=== PATIENT | male | born 1995 | race Hispanic/Latino ===

== ENCOUNTER 2021-01-12 09:03 | Emergency (ER) | payer SELFPAY ==
--- OUTSIDE RECORDS SUMMARY | 2021-01-12 09:07 | XMS REPORT | Continuity of Care Document ---
:1995 Author Organization [facility] t Address [address] [place] [address] Care Team Providers Name Role Phone UNKNOWN, REFFERING Primary Care Physician Unavailable TANIA SANTO Attending Clinician Unavailable TANIA SANTO Admitting Clinician Unavailable Problems This patient has no known problems. Allergies, Adverse Reactions, Alerts This patient has no known allergies or adverse reactions. Medications This patient has no known medications. Procedures This patient has no known procedures. Results Test Description Test Time Test Comments Results Result Comments Source Comprehensive Metabolic Panel 2016-10-15 07:58:00 Test Item Value Reference Range Interpretation Comme nts Sodium (test code = NA) 140 mmol/L 135-145 N Potassium (test code = K) 4.5 mmol/L 3.5-5.1 N Chloride (test code = CL) 102 mmol/L 98-105 N Carbon Dioxide (test code = 29 mmol/L 22-29 N CO2) Glucose (test code = GLU) 86 mg/dL 70-115 N Blood Urea Nitrogen (test 21 mg/dL 6-20 H code = BUN) Creatinine (test code = 1.2 mg/dL 0.7-1.2 N CREAT) Calcium (test code = CA) 9.8 mg/dL 8.3-10.5 N Prot Total (test code = TP) 6.9 g/dL 6.4-8.3 N Albumin (test code = ALB) 4.5 g/dL 3.5-5.2 N A/G Ratio (test code = 1.9 Ratio AGRATIO) Globulin (test code = GLOB) 2.4 2.9-3.1 L Bili Total (test code = 0.9 mg/dL 0.1-0.9 N TBIL) Alk Phos (test code = 64 U/L 40-129 N APHOS) AST (test code = AST) 18 U/L 1-40 N ALT (test code = ALT) 17 U/L 1-41 N BUN/Creatinine Ratio (test 17.5 code = BCRATIO) Anion Gap (test code = 9 mmol/L 7-16 N AGAP) Estimated GFR (test code = >60 mL/min/1.73m2 eGFR (estimated Glomerular GFR) Filtration Rate ) is an estimated value ,calculated from the patien t's serum creatinine usin g the MDRD equation.It is NOT the patient's actua l GFR. The eGFR provides a more clinicallyusefu l measure of kidney disease than serum creatinine lisa e.This calculation dipak es sex and race into accou nt, if the informationis p rovided. If the race is not provided, and the patient isAfrican-Ameri can, multiply by 1.212. If se x is not provided, and t hepatient is female, multipl y by 0.742. Results for pat ients <18 years ofage hav e not been validated by e MDRD study and should be i nterpretedwith caution.eGFR Re sult Interpretation: eGFR > or = 60 is in the Rahel l RangeeGFR < 60 may mean kid wesley diseaseeGFR < 1 5 may mean kidney failure* Ranges recommended by the National Kidney Foundation,http ://nkdep.nih.g ov Renal [id number] 07:55:00 Test Item Value Reference Range Interpretation Comments Sodium (test code = 140 mmol/L 135-145 N NA) Potassium (test 4.6 mmol/L 3.5-5.1 N code = K) Chloride (test code 101 mmol/L 98-105 N = CL) Carbon Dioxide 29 mmol/L 22-29 N (test code = CO2) Glucose (test code 87 mg/dL 70-115 N = GLU) Blood Urea Nitrogen 20 mg/dL 6-20 N (test code = BUN) Creatinine (test 1.2 mg/dL 0.7-1.2 N code = CREAT) Calcium (test code 9.9 mg/dL 8.3-10.5 N = CA) Albumin (test code 4.4 g/dL 3.5-5.2 N = ALB) Phosphorus (test 4.2 mg/dL 2.70-4.50 N code = PO4) BUN/Creatinine 16.7 Ratio (test code = BCRATIO) Anion Gap (test 10 mmol/L 7-16 N code = AGAP) Estimated GFR (test >60 eGFR (es timated code = GFR) mL/min/1.73m2 Glomerular Wes tration Rate) is an est imated value,calculate d from the patient's s chey creatinine usin g the MDRD equation.I t is NOT the patient 's actual GFR. The eGFR provides a more clinicallyusefu l measure of kidn ey disease than se rum creatinine alone.This calculation dipak es sex and race into account, if the informationis provided. If th e race is not provided , and the patient isAfrican-Ameri can, multiply by 1.2 12. If sex is not prov ided, and thepatient is female, multipl y by 0.742. Results for patients <18 ye ars ofage have not been validated by th e MDRD study and shoul d be interpretedwith caution.eGFR Re sult Interpretation: eGFR > or = 60 is in t he Normal RangeeGF R < 60 may mean kidney diseaseeGFR < 1 5 may mean kidney failureRange s recommended by the National Kidney Foundation,http ://nkd ep.nih.gov RPR, [id number] 13:48:00 Test Item Value Reference Range Interpretation Comments RPR (test code = RPR) Non-Reactive Non-Reactive N Thyroid Stimulating Hormone (TSH)2016-10-13 08:11:00 Test Item Value Reference Range Interpretation Comments TSH (test code = TSH) 2.73 mIU/mL 0.270-4.200 N Lipid [id number] 08:04:00 Test Item Value Reference Range Interpretation Comments Cholesterol (test 182 mg/dL 0-200 N code = CHOL) Triglycerides (test 114 mg/dL 9-200 N code = TRIG) HDL (test code = 69 mg/dL 40-60 H HDL) Chol/HDL (test code 2.6 Ratio 0.0-5.0 N = CHOLPHDL) LDL, Calculated 90 0-130 N (NOTE)RISK O F HEART (test code = LDLC) DISEASEPu blished by Camero[place] Heart AssociationAnal yte Optim al Boderline Increased RiskC HOL <200 200-239 >240TRI G <150 150-199 >200HDL Male: >60 <40HDL Female: >60 <50 LDL < 100 130-15 9 >160 LDL NEAR OPTIMAL IS 100- 129 VLDL (test code = 23 mg/dL 5-40 N VLDL) LDL/HDL (test code = 1 LDLPHDL)
[2021-01-12] MEDS ORDERED: LORazepam 2 MG/ML VIAL ONE (09:11)
[2021-01-12] MEDS ORDERED: NA CHLORIDE 0.9% 1,000 ML ONE ×2 (09:19→10:53)
--- NOTE | 2021-01-12 09:31 | RAD REPORT ---
EXAM DESCRIPTION: CT - Head Brain Wo Cont - 01/12/2021 9:21 am CLINICAL HISTORY: Headache;Seizure COMPARISON: <Comparisons> TECHNIQUE: All CT scans are performed using dose optimization technique as appropriate and may inclu de automated exposure control or mA/KV adjustment according to patient size. FINDINGS: No intracranial hemorrhage, hydrocephalus or extra-axial fluid collection.No areas of brai n edema or evidence of midline shift. Air-fluid level left maxillary sinus. The calvarium is intact. IMPRESSION: No acute intracranial abnormality.
[2021-01-12] MEDS ORDERED: CEFTRIAXONE 1000 MG/VIAL ONE (09:53)
[2021-01-12] MEDS ORDERED: LEVETIRACETAM 500 MG/5 ML VIAL IV ONE (09:53)
[2021-01-12] MEDS ORDERED: WATER FOR INJ,STERILE 10 ML ONE (09:53)
[2021-01-12 09:54] LABS: Protime INR 0.97
[2021-01-12] MEDS ORDERED: NA CHLORIDE 0.9% 100 ML ONE (09:55)
[2021-01-12 09:57] LABS: Absolute Lymphocytes (CBC) 0.8 K/uL (0.7-4.9); Basophils % 0.5 % (0-1.3); Lymphocytes % 15.1 % (15.3-44.8); MPV 8.3 fL (7.6-11.3); RBC Red Blood Cell Count 4.85 M/uL (4.33-5.43)
[2021-01-12 10:26] LABS: ALT/SGPT 36 U/L (12-78); AST/SGOT 32 U/L (15-37); Albumin 3.8 g/dL (3.4-5.0); Alkaline Phosphatase 77 U/L (45-117); BUN Blood Urea Nitrogen 17 mg/dL (7-18); Bicarbonate 25 mmol/L (21-32); Bilirubin Direct 0.2 mg/dL (0-0.2); Bilirubin Total 0.7 mg/dL (0.2-1.0); Glucose Level 94 mg/dL (74-106); Protein, Total 7.2 g/dL (6.4-8.2); Sodium Level 141 mmol/L (136-145)
[2021-01-12 11:06] LABS: Urine Blood Negative (Negative); Urine Glucose Negative (Negative); Urine Protein Negative (Negative); Urine Specific Gravity 1.025 (1.005-1.030)
--- NOTE | 2021-01-12 11:28 | EDPHYS ---
Physician Documentation [facility] Name: Moses Cochran Age: 25 yrs Sex: Male : 1995 Arrival Date: 01/12/2021 Time: 09:04 Bed 6 Private MD: ED Physician Chris Gregg HPI: 01/12 09:28 This 25 yrs old Male presents to ER via EMS with complaints of seizure and ams.tal 09:28 The patient's problem is reported as an apparent seizure, weakness, that is tal generalized. Onset: The symptoms/episode began/occurred this morning. Duration: This was a single incident. Context: the episode(s) was witnessed, by family, mother. The symptoms are alleviated by nothing. The symptoms are aggravated by nothing. The patient presents with confusion, trouble concentrating. Possible causes: drug use, unk, seizure. Associated signs and symptoms: Pertinent positives: confusion. Current symptoms: In the emergency department the patient's symptoms have improved, moderately. Historical: - Allergies: 09:07 NKDA; jt3 - Home Meds: 09:07 None [Active]; jt3 - PMHx: 09:07 Seizures; jt3 - Immunization history:: Adult Immunizations up to date. - Social history:: Patient uses alcohol, Smoking status: unknown. - Family history:: not pertinent. ROS: 09:28 Constitutional: Negative for fever, chills, and weight loss, Eyes: Negative for injury, tal pain, redness, and discharge, ENT: Negative for injury, pain, and discharge, Neck: Negative for injury, pain, and swelling, Cardiovascular: Negative for chest pain, palpitations, and edema, Respiratory: Negative for shortness of breath, cough, wheezing, and pleuritic chest pain, Abdomen/GI: Negative for abdominal pain, nausea, vomiting, diarrhea, and constipation, Back: Negative for injury and pain, : Negative for injury, bleeding, discharge, and swelling, MS/Extremity: Negative for injury and deformity, Skin: Negative for injury, rash, and discoloration, Psych: Negative for depression, anxiety, suicide ideation, homicidal ideation, and hallucinations, Allergy/Immunology: Negative for hives, rash, and allergies, Endocrine: Negative for neck swelling, polydipsia, polyuria, polyphagia, and marked weight changes, Hematologic/Lymphatic: Negative for swollen nodes, abnormal bleeding, and unusual bruising. :28 Neuro: Positive for altered mental status, weakness. Exam: : Radiologist reports: negative tal : Constitutional: This is a well developed, well nourished patient who is awake, alert, and in no acute distress. Head/Face: Normocephalic, atraumatic. Eyes: Pupils equal round and reactive to light, extra-ocular motions intact. Lids and lashes normal. Conjunctiva and sclera are non-icteric and not injected. Cornea within normal limits. Periorbital areas with no swelling, redness, or edema. ENT: Nares patent. No nasal discharge, no septal abnormalities noted. Tympanic membranes are normal and external auditory canals are clear. Oropharynx with no redness, swelling, or masses, exudates, or evidence of obstruction, uvula midline. Mucous membranes moist. Neck: Trachea midline, no thyromegaly or masses palpated, and no cervical lymphadenopathy. Supple, full range of motion without nuchal rigidity, or vertebral point tenderness. No Meningismus. Chest/axilla: Normal chest wall appearance and motion. Nontender with no deformity. No lesions are appreciated. Cardiovascular: Regular rate and rhythm with a normal S1 and S2. No gallops, murmurs, or rubs. Normal PMI, no JVD. No pulse deficits. Respiratory: Lungs have equal breath sounds bilaterally, clear to auscultation and percussion. No rales, rhonchi or wheezes noted. No increased work of breathing, no retractions or nasal flaring. Abdomen/GI: Soft, non-tender, with normal bowel sounds. No distension or tympany. No guarding or rebound. No evidence of tenderness throughout. Back: No spinal tenderness. No costovertebral tenderness. Full range of motion. Skin: Warm, dry with normal turgor. Normal color with no rashes, no lesions, and no evidence of cellulitis. MS/ Extremity: Pulses equal, no cyanosis. Neurovascular intact. Full, normal range of motion. Neuro: Awake and alert, GCS 15, oriented to person, place, time, and situation. Cranial nerves II-XII grossly intact. Motor strength 5/5 in all extremities. Sensory grossly intact. Cerebellar exam normal. Normal gait. Psych: Awake, alert, with orientation to person, place and time. Behavior, mood, and affect are within normal limits. 09:56 ECG was reviewed by the Attending Physician. tal Vital Signs: 09:04 BP 128 / 80; Pulse 103; Resp 17; Temp 98.1(TE); Pulse Ox 97% on R/A; Weight 63.5 kg; jt3 Height 5 ft. 5 in. (165.10 cm); 10:11 BP 114 / 57; Pulse 108; Resp 17; Pulse Ox 97% on R/A; jt3 11:06 BP 99 / 69; Pulse 96; Resp 17; Pulse Ox 99% on R/A; jt3 11:46 BP 109 / 54; Pulse 61; Resp 17; Pulse Ox 98% on R/A; jt3 12:15 BP 132 / 63; Pulse 60; Resp 17; Pulse Ox 97% on R/A; jt3 09:04 Body Mass Index 23.30 (63.50 kg, 165.10 cm) jt3 MDM: 09:04 Patient medically screened. tal 09:35 Differential diagnosis: metabolic disorder, drug effects. Differential Diagnosis: tal electrolyte abnormality, alcohol intoxication, hypoglycemia, intracranial bleed, overdose, seizure, TIA, volume depletion. Data reviewed: vital signs, nurses notes, EMS record, lab test result(s), EKG, radiologic studies, CT scan. Data interpreted: desk monitor: rate is 103 beats/min, rhythm is regular, Pulse oximetry: on room air is 97 %. Test interpretation: by ED physician or midlevel provider: ECG. Counseling: I had a detailed discussion with the patient and/or guardian regarding: the presence of at least one elevated blood pressure reading (>120/80) during this emergency department visit, lab results, radiology results. 01/12 09:05 Order name: Acetaminophen; Complete Time: 10:41 [facility] 01/12 09:05 Order name: Basic Metabolic Panel; Complete Time: 10:41 [facility] 01/12 09:05 Order name: CBC with Diff; Complete Time: 10:41 [facility] 01/12 09:05 Order name: ETOH Level; Complete Time: 10:41 [facility] 01/12 09:05 Order name: Hepatic Function; Complete Time: 10:41 [facility] 01/12 09:05 Order name: PT-INR; Complete Time: 10:41 [facility] 01/12 09:05 Order name: Ptt, Activated; Complete Time: 10:41 [facility] 01/12 09:05 Order name: Salicylate; Complete Time: 10:41 [facility] 01/12 09:05 Order name: Urine Drug Screen; Complete Time: 11:33 [facility] 01/12 09:05 Order name: CT Head Brain wo Cont; Complete Time: 09:38 [facility] 01/12 11:05 Order name: Urine Dipstick-Ancillary; Complete Time: 11:20 EDMS 01/12 09:05 Order name: EKG; Complete Time: 09:05 [facility] 01/12 09:05 Order name: EKG - Nurse/Tech; Complete Time: 09:51 [facility] 01/12 09:05 Order name: IV Saline Lock; Complete Time: 09:16 [facility] 01/12 09:05 Order name: Labs collected and sent; Complete Time: 09:51 [facility] 01/12 09:05 Order name: Suicide Screening ([place]); Complete Time: 09:28 [facility] 01/12 09:05 Order name: Urine Dipstick-Ancillary (obtain specimen); Complete Time: 11:23 [facility] 01/12 09:05 Order name: Seizure Precautions; Complete Time: 09:15 [facility] EC:56 Rate is 87 beats/min. Rhythm is regular. QRS Kim is Normal. CA interval is normal. QRS tal interval is normal. QT interval is normal. No Q waves. T waves are Normal. No ST changes noted. Clinical impression: Normal ECG and No evidence of ischemia. Interpreted by me. Reviewed by me. Administered Medications: 09:16 Drug: Ativan (LORazepam) 1 mg Route: IVP; Site: left antecubital; jt3 11:17 Follow up: Response: No adverse reaction jt3 09:51 Drug: NS 0.9% 1000 ml Route: IV; Rate: 1 bolus; Site: right antecubital; jt3 10:06 Drug: Keppra (levETIRAcetam) 1000 mg Route: IV; Rate: per protocol; Site: right jt3 antecubital; 10:06 Drug: Rocephin (cefTRIAXone) 1 grams Route: IV; Rate: per protocol; Site: right jt3 antecubital; 11:17 Follow up: Response: No adverse reaction jt3 11:06 Drug: NS 0.9% 1000 ml Route: IV; Rate: 1 bolus; Site: right forearm; jt3 11:16 Follow up: Response: No adverse reaction; IV Intake: 1000ml jt3 11:58 Follow up: Response: No adverse reaction; IV Status: Completed infusion; IV Intake: jt3 900ml Disposition Summary: 01/12/21 11:27 Discharge Ordered Location: Home tal Problem: new tal Symptoms: have improved tal Condition: Stable tal Diagnosis - Epileptic seizures related to external causes, not intractable tal - Alcohol abuse, uncomplicated tal - Acute maxillary sinusitis tal Followup: tal - With: Private Physician - When: 2 - 3 days - Reason: Recheck today's complaints, Continuance of care, Re-evaluation by your physician Followup: tal - With: - When: 2 - 3 days - Reason: Recheck today's complaints, Continuance of care, Re-evaluation by your physician Discharge Instructions: - Discharge Summary Sheet tal - Alcohol Use Disorder tal - Non-Epileptic Seizures, Adult tal - Seizure, Adult tal - Substance Use Disorder tal - Sinusitis, Adult tal - Seizure, Adult, [id number] tal - Sinusitis, Adult, [id number] tal - Alcohol Abuse and Nutrition tal Forms: - Medication Reconciliation Form tal - Thank You Letter tal - Antibiotic Education tal - Prescription Opioid Use tal Prescriptions: - Keppra 500 mg Oral Tablet - take 1 tablet by ORAL route every 12 hours; 20 tablet; Refills: 0, Product [facility] Selection Permitted - Bactrim DS 800-160 mg Oral Tablet - take 1 tablet by ORAL route every 12 hours for 10 days; 20 tablet; Refills: 0, tal Product Selection Permitted Signatures: Dispatcher [employer] Chris Castillo MD MD cha Tejchma, Jordan, RN RN jt3
--- NOTE | 2021-01-12 11:28 | ER ---
Nurse's Notes [facility] Name: Moses Cochran Age: 25 yrs Sex: Male : 1995 Arrival Date: 01/12/2021 Time: 09:04 Bed 6 Private MD: Diagnosis: Epileptic seizures related to external causes, not intractable;Alcohol abuse, uncomplicated;Acute maxillary sinusitis Presentation: 01/12 09:04 Chief complaint: EMS states: Patient's mom found the patient having a seizure on jt3 ground. Pt. fell from sofa. Pt. is alert and oriented x4 on arrival with headache. Does not remember seizure. Past hx of using K2 spice 4 years ago. Denies any other medical hx or on any meds. Coronavirus screen: Vaccine status: Patient reports receiving the 2nd dose of the covid vaccine. Ebola Screen: Patient negative for fever greater than or equal to 101.5 degrees Fahrenheit, and additional compatible Ebola Virus Disease symptoms Patient denies exposure to infectious person. Patient denies travel to an Ebola-affected area in the 21 days before illness onset. Initial Sepsis Screen: Does the patient meet any 2 criteria? No. Patient's initial sepsis screen is negative. Does the patient have a suspected source of infection? No. Patient's initial sepsis screen is negative. Risk Assessment: Do you want to hurt yourself or someone else? Patient reports no desire to harm self or others. Onset of symptoms was January 12, 2021. 09:04 Method Of Arrival: EMS: [facility] jt3 09:04 Acuity: KOBI 3 jt3 Triage Assessment: 09:07 General: Appears in no apparent distress. Behavior is calm, cooperative. jt3 Historical: - Allergies: 09:07 NKDA; jt3 - Home Meds: 09:07 None [Active]; jt3 - PMHx: 09:07 Seizures; jt3 - Immunization history:: Adult Immunizations up to date. - Social history:: Patient uses alcohol, Smoking status: unknown. - Family history:: not pertinent. Screenin:08 Abuse screen: Denies threats or abuse. Denies injuries from another. Nutritional jt3 screening: No deficits noted. Tuberculosis screening: No symptoms or risk factors identified. Fall Risk Fall in past 12 months (25 points). Assessment: 09:08 Pain: Complains of pain in face Pain does not radiate. Pain currently is 5 out of 10 on jt3 a pain scale. Quality of pain is described as throbbing. Neuro: Level of Consciousness is awake, alert, Oriented to person, place, time, situation, Speech is normal, Pupils are PERRLA. Cardiovascular: No deficits noted. Cardiovascular: Denies Rhythm is sinus tachycardia. Respiratory: No deficits noted. 10:09 Reassessment: Patient denies wanting to harm himself. Prior attempt 8 years ago. Pt. jt3 screens moderate risk on CSSRS due to prior attempt within a lifetime. 11:07 Reassessment: Pt. states he is feeling better, but still has a slight headache. Alert jt3 and oriented x4. Pt. updated on plan of care. 11:45 Reassessment: Pt. is steady on his feet. Alert and oriented x4. Pt. walked jt3 independently to the bathroom. Vital Signs: 09:04 BP 128 / 80; Pulse 103; Resp 17; Temp 98.1(TE); Pulse Ox 97% on R/A; Weight 63.5 kg; jt3 Height 5 ft. 5 in. (165.10 cm); 10:11 BP 114 / 57; Pulse 108; Resp 17; Pulse Ox 97% on R/A; jt3 11:06 BP 99 / 69; Pulse 96; Resp 17; Pulse Ox 99% on R/A; jt3 11:46 BP 109 / 54; Pulse 61; Resp 17; Pulse Ox 98% on R/A; jt3 12:15 BP 132 / 63; Pulse 60; Resp 17; Pulse Ox 97% on R/A; jt3 09:04 Body Mass Index 23.30 (63.50 kg, 165.10 cm) jt3 ED Course: 09:04 Patient arrived in ED. iw 09:04 Tomy Rico RN is Primary Nurse. jt3 09:04 Chris Gregg MD is Attending Physician. tal 09:07 Triage completed. jt3 09:07 Arm band placed on right wrist. jt3 09:08 Bed in low position. Call light in reach. Side rails up X2. Seizure precautions jt3 initiated. 09:08 No provider procedures requiring assistance completed. Maintain EMS IV. Dressing jt3 intact. Good blood return noted. Site clean \T\ dry. Gauge \T\ site: 20G Right FA. . 09:21 CT Head Brain wo Cont In Process Unspecified. EDMS 11:27 Gaurav Russell MD is Referral Physician. [facility] 11:57 IV discontinued, intact, bleeding controlled, No redness/swelling at site. Pressure jt3 dressing applied. Administered Medications: 09:16 Drug: Ativan (LORazepam) 1 mg Route: IVP; Site: left antecubital; jt3 11:17 Follow up: Response: No adverse reaction jt3 09:51 Drug: NS 0.9% 1000 ml Route: IV; Rate: 1 bolus; Site: right antecubital; jt3 10:06 Drug: Keppra (levETIRAcetam) 1000 mg Route: IV; Rate: per protocol; Site: right jt3 antecubital; 10:06 Drug: Rocephin (cefTRIAXone) 1 grams Route: IV; Rate: per protocol; Site: right jt3 antecubital; 11:17 Follow up: Response: No adverse reaction jt3 11:06 Drug: NS 0.9% 1000 ml Route: IV; Rate: 1 bolus; Site: right forearm; jt3 11:16 Follow up: Response: No adverse reaction; IV Intake: 1000ml jt3 11:58 Follow up: Response: No adverse reaction; IV Status: Completed infusion; IV Intake: jt3 900ml Intake: 11:16 IV: 1000ml; Total: 1000ml. jt3 11:58 IV: 900ml; Total: 1900ml. jt3 Outcome: 11:27 Discharge ordered by . [facility] 11:58 Discharged to home ambulatory. jt3 11:58 Condition: good 11:58 Discharge instructions given to patient, Instructed on discharge instructions, follow up and referral plans. medication usage, Demonstrated understanding of instructions, medications, Prescriptions given X 2. 12:06 Patient left the ED. jt3 Signatures: Dispatcher [employer] EDMD Chris Gregg MD MD cha Williams, Irene, RN RN iw Tejchma, Jordan, RN RN jt3
[2021-01-12 11:29] LABS: Barbiturates NEGATIVE (NEGATIVE); Benzodiazepines NEGATIVE (NEGATIVE); Cocaine NEGATIVE (NEGATIVE); METHAMPHETAM NEGATIVE (NEGATIVE); Methadone NEGATIVE (NEGATIVE); Opiates NEGATIVE (NEGATIVE); Phencyclidine NEGATIVE (NEGATIVE); THC Cannibis NEGATIVE (NEGATIVE)
[2021-01-12 12:11] VITALS: TEMP 98.1
[2021-01-12 12:16] VITALS: BP 109/54; O2SAT 98
== END 2021-01-12 12:06 | disposition home or self-care (01) ==
LOC: ER 09:03
DX: G40.509 Epileptic seizures related to external causes, not intractable, without status epilepticus (principal); F10.10 Alcohol abuse, uncomplicated; J01.00 Acute maxillary sinusitis, unspecified
CPT/HCPCS: 36415; 70450; 80048; 80076; 80307; 80320; 80329; 81003; 85025; 85610; 85730; 93005; 99284; J1953; J7030

== ENCOUNTER 2021-05-29 18:20 | Emergency (ER) | payer SELFPAY ==
--- OUTSIDE RECORDS SUMMARY | 2021-05-29 18:22 | XMS REPORT | Continuity of Care Document ---
:1995 Author Organization [facility] t Address [address] [place] [address] Care Team Providers Name Role Phone UNKNOWN, [...] the National Kidney Foundation,http ://nkdep.nih.g ov Renal [id number] 07:55:00 Test Item Value Reference Range Interpretation [...] the National Kidney Foundation,http ://nkd ep.nih.gov RPR, [id number] 13:48:00 Test Item Value Reference Range Interpretation Comments RPR (test code = RPR) Non-Reactive Non-Reactive N Thyroid Stimulating Hormone (TSH)2016-10-13 08:11:00 Test Item Value Reference Range Interpretation Comments TSH (test code = TSH) 2.73 mIU/mL 0.270-4.200 N Lipid [id number] 08:04:00 Test Item Value Reference Range Interpretation Comments Cholesterol (test 182 mg/dL 0-200 N code = CHOL) Triglycerides (test 114 mg/dL 9-200 N code = TRIG) HDL (test code = 69 mg/dL 40-60 H HDL) Chol/HDL (test code 2.6 Ratio 0.0-5.0 N = CHOLPHDL) LDL, Calculated 90 0-130 N (NOTE)RISK O F HEART (test code = LDLC) DISEASEPu blished by [place] Heart AssociationAnal yte Optim al Boderline Increased RiskC HOL <200 200-239 >240TRI G <150 150-199 >200HDL Male: >60 <40HDL Female: >60 <50 LDL < 100 130-15 9 >160 LDL NEAR OPTIMAL IS 100- 129 VLDL (test code = 23 mg/dL 5-40 N VLDL) LDL/HDL (test code = 1 LDLPHDL)
[2021-05-29] MEDS ORDERED: MIDAZOLAM HCL 2 MG/2 ML INJ ONE (18:27)
[2021-05-29 18:52] LABS: Absolute Lymphocytes (CBC) 2.3 K/uL (0.7-4.9); Hematocrit 42.3 % (39.6-49.0); Lymphocytes % 32.7 % (15.3-44.8); MPV 8.7 fL (7.6-11.3)
[2021-05-29 18:57] LABS: Protime INR 1.05
[2021-05-29 19:15] LABS: ALT/SGPT 34 U/L (12-78); AST/SGOT 32 U/L (15-37); BUN Blood Urea Nitrogen 16 mg/dL (7-18); Bicarbonate 23 mmol/L (21-32); Bilirubin Direct 0.2 mg/dL (0-0.2); Glucose Level 116 mg/dL (74-106); Potassium 3.9 mmol/L (3.5-5.1); Sodium Level 140 mmol/L (136-145)
[2021-05-29 19:17] LABS: Alkaline Phosphatase 68 U/L (45-117); Bilirubin Total 0.6 mg/dL (0.2-1.0); Protein, Total 7.1 g/dL (6.4-8.2)
--- NOTE | 2021-05-29 19:23 | RAD REPORT ---
EXAM DESCRIPTION: CT - Head Brain Wo Cont - 05/29/2021 7:01 pm CLINICAL HISTORY: CONFUSED, altered mental status COMPARISON: Head Brain Wo Cont dated 01/12/2021 TECHNIQUE: Axial 5 mm thick images of the head were obtained without IV contrast. All CT scans are performed using dose optimization technique as appropriate and may include automated exposure control or mA/KV adjustment according to patient size. FINDINGS: No intracranial hemorrhage, mass, edema or shift of mid-line structures. No acute infarcti on changes seen. No abnormal extra-axial fluid collections. Ventricles are normal. Mastoid air cells and visualized portions of the paranasal sinuses are clear. No acute bony findings. No significant change from comparison. IMPRESSION: Negative non-contrast CT head examination.
[2021-05-29] MEDS ORDERED: NA CHLORIDE 0.9% 2,000 ML ONE (19:29)
[2021-05-29 19:48] LABS: Urine Blood Negative (Negative); Urine Glucose Negative (Negative); Urine Protein 1+ (Negative); Urine Specific Gravity 1.025 (1.005-1.030)
[2021-05-29] MEDS ORDERED: NA CHLORIDE 0.9% 1,000 ML ONE (19:59)
[2021-05-29] MEDS ORDERED: THIAMINE 200 MG/2 ML INJ ONE (19:59)
[2021-05-29] MEDS ORDERED: MULTIVITAMINS 10 ML VIAL (INJ) IV ONE (19:59)
[2021-05-29] MEDS ORDERED: FOLIC ACID 5 MG/ML VIAL ONE (20:00)
[2021-05-29 20:06] LABS: Barbiturates NEGATIVE (NEGATIVE); Benzodiazepines POSITIVE (NEGATIVE); Cocaine NEGATIVE (NEGATIVE); METHAMPHETAM POSITIVE (NEGATIVE); Methadone NEGATIVE (NEGATIVE); Opiates NEGATIVE (NEGATIVE); Phencyclidine NEGATIVE (NEGATIVE); THC Cannibis POSITIVE (NEGATIVE)
--- NOTE | 2021-05-29 21:50 | EDPHYS ---
Physician Documentation [facility] Name: Moses Cochran Age: 25 yrs Sex: Male : 1995 Arrival Date: 05/29/2021 Time: 18:22 Bed 6 Private MD: ED Physician Chris Gregg HPI: 05/29 18:26 This 25 yrs old Male presents to ER via Unassigned with complaints of AMS. rn 18:26 The patient presents with decreased responsiveness, agitation. Onset: The rn symptoms/episode began/occurred at an unknown time. Possible causes: drug use. Associated signs and symptoms: Pertinent positives: agitation, confusion. Current symptoms: In the emergency department the patient's symptoms have improved. It is unknown whether or not the patient has had similar symptoms in the past. EMS called out for AMS, were told smoked marijuana, unknown if another substance, pt found on ground, pants down, hand on penis with a knife in other hand saying there was a bug in his penis. Was agitated and excited delirium, given 2 mg ativan and 150mg ketamine and still fighting a bit. No seizure activity. . Historical: - Allergies: 18:32 NKDA; iw - PMHx: 18:32 Renal Disease; Seizures; iw - Immunization history:: Adult Immunizations unknown. - Social history:: Smoking status: unknown. - Unable to obtain history due to: altered mental status. ROS: 18:26 Unable to obtain ROS due to altered mental status, patient being uncooperative. rn Exam: 18:26 Constitutional: Well developed patient, altered, uncooperative, no seizure activity, rn sits up and speaks incomprehensibly, spitting, in soft restraints from EMS. Head/Face: Normocephalic, atraumatic. Eyes: Pupils dilated, no nystagmus ENT: dry MM Cardiovascular: tachcyardic, regular Respiratory: No increased work of breathing, no retractions or nasal flaring. Abdomen/GI: soft, non-tender Skin: Warm, dry MS/ Extremity: Pulses equal, no cyanosis. Neuro: Altered, moves all 4 extremities against restraints, no seizure activity, speaks but does not follow commands. Very agitated 19:44 ECG was reviewed by the Attending Physician. tal Vital Signs: 18:30 BP 104 / 54; Pulse 132; Resp 18; Temp 96.8; Pulse Ox 97% on R/A; ph 19:30 BP 108 / 55; Pulse 108; Resp 20 S; Pulse Ox 97% on R/A; as6 20:30 BP 109 / 53; Pulse 105; Resp 17 S; Pulse Ox 97% on R/A; as6 21:28 BP 112 / 53; Pulse 96; Resp 16; Pulse Ox 100% on R/A; st1 MDM: 18:24 Patient medically screened. rn 19:44 Differential Diagnosis: electrolyte abnormality, alcohol intoxication, hypoglycemia, tal intracranial bleed, pneumonia, seizure, UTI, volume depletion. Data reviewed: vital signs, nurses notes, lab test result(s), CBC, drug level(s), electrolytes, hepatic panel, EKG, radiologic studies. Data interpreted: stock holder: rate is 132 beats/min, rhythm is regular, Pulse oximetry: on room air is 97 %. Test interpretation: by ED physician or midlevel provider: ECG, plain radiologic studies. Counseling: I had a detailed discussion with the patient and/or guardian regarding: the historical points, exam findings, and any diagnostic results supporting the discharge/admit diagnosis, lab results, radiology results. 05/29 18:26 Order name: Acetaminophen; Complete Time: 19: rn 05/29 18:26 Order name: Basic Metabolic Panel; Complete Time: 19: rn 05/29 18:26 Order name: CBC with Diff; Complete Time: 19: rn 05/29 18:26 Order name: ETOH Level; Complete Time: 19:22 rn 05/29 18:26 Order name: Hepatic Function; Complete Time: 19: rn 05/29 18:26 Order name: PT-INR; Complete Time: 19:22 rn 05/29 18:26 Order name: Ptt, Activated; Complete Time: 19:22 rn 05/29 18:26 Order name: Salicylate rn 05/29 18:26 Order name: Urine Drug Screen; Complete Time: 20:12 rn 05/29 18:26 Order name: CT Head Brain wo Cont; Complete Time: 19: rn 05/29 19:49 Order name: Urine Dipstick-Ancillary; Complete Time: 20:12 EDCA 05/29 18:26 Order name: EKG; Complete Time: 18:27 rn 05/29 18:26 Order name: EKG - Nurse/Tech; Complete Time: 19:48 rn 05/29 18:26 Order name: IV Saline Lock; Complete Time: 19:16 rn 05/29 18:26 Order name: Labs collected and sent; Complete Time: 19:16 rn 05/29 18:26 Order name: Urine Dipstick-Ancillary (obtain specimen); Complete Time: 19:48 rn 05/29 18:26 Order name: Glucose Level; Complete Time: 19:26 rn EC:44 Rate is 109 beats/min. Rhythm is regular. QRS [place] is Normal. [place] interval is normal. tal QRS interval is normal. QT interval is normal. No Q waves. T waves are Normal. No ST changes noted. Clinical impression: NSR w/ Non-specific ST/T Changes and No evidence of ischemia. Interpreted by me. Reviewed by me. Administered Medications: 18:27 Drug: Versed (midazolam) 2 mg Route: IVP; Site: right forearm; iw 19:45 Drug: NS 0.9% 1000 ml Route: IV; Rate: 1000 ml; Site: right forearm; st1 19:45 Drug: NS 0.9% 1000 ml Route: IV; Rate: 1000 ml; Site: right forearm; st1 20:08 Drug: Thiamine 100 mg Route: IV; Rate: bolus; Site: right forearm; as6 20:08 Drug: Banana Bag - (NS 0.9% 1000 ml, foLIC Acid 1 mg, Thiamine 100 mg, Multivitamin 1 as6 amp) Route: IV; Rate: 150 ml/hr; Site: right forearm; Disposition Summary: 05/29/21 21:50 Discharge Ordered Location: Home tal Problem: new tal Symptoms: have improved tal Condition: Stable tal Diagnosis - Abuse of other non-psychoactive substances tal - Altered mental status, unspecified tal - Adverse effect of amphetamines tal Followup: tal - With: Private Physician - When: 2 - 3 days - Reason: Recheck today's complaints, Continuance of care, Re-evaluation by your physician Followup: tal - With: - When: 2 - 3 days - Reason: Recheck today's complaints, Re-evaluation by your physician Discharge Instructions: - Discharge Summary Sheet tal - Finding Treatment for Addiction tal - Confusion tal - Substance Use Disorder tal - Supporting Someone With an Addiction tal - Amphetamines Use Disorder tal - Substance Use Disorder and Mental Illness tal - Illegal Drug Use Information, Adult tal - Supporting Someone With Substance Use Disorder tal Forms: - Medication Reconciliation Form tal - Thank You Letter tal - Antibiotic Education tal - Prescription Opioid Use tal Signatures: Dispatcher [employer] Chris Castillo MD MD cha Williams, Irene RN Jaziel Gibbs MD MD rn Attema, Lee, BIOMEDICAL ENGINEERING TECHNICIAN-C BIOMEDICAL ENGINEERING TECHNICIAN-Cla1 Aydee Klein RN RN Kel Fenton RN RN as6 Diann Drake RN RN st1
--- NOTE | 2021-05-29 21:50 | ER ---
Nurse's Notes [facility] Name: Moses Cochran Age: 25 yrs Sex: Male : 1995 Arrival Date: 05/29/2021 Time: 18:22 Bed 6 Private MD: Diagnosis: Abuse of other non-psychoactive substances;Altered mental status, unspecified;Adverse effect of amphetamines Presentation: 05/29 18:20 Chief complaint: EMS states: were called for a pt trying to remove a bug from his penis iw with a pocket knife, pt became combative, exhibiting signs of excited delirium , AMS, tachycardic, admitted to smoking marijuana only, EMS gave 150 Ketamine IVP and 2 mg ativan IVP ON SITE CONSTRUCTION SUPERINTENDENT, pt arrives to ER, drowsy, uncooperative, spitting , on O2. Coronavirus screen: At this time, the client does not indicate any symptoms associated with coronavirus-19. Ebola Screen: Patient negative for fever greater than or equal to 101.5 degrees Fahrenheit, and additional compatible Ebola Virus Disease symptoms Patient denies exposure to infectious person. Patient denies travel to an Ebola-affected area in the 21 days before illness onset. No symptoms or risks identified at this time. Initial Sepsis Screen: Does the patient meet any 2 criteria? No. Patient's initial sepsis screen is negative. Does the patient have a suspected source of infection? No. Patient's initial sepsis screen is negative. Onset of symptoms was May 29, 2021. 18:20 Method Of Arrival: EMS: [facility] iw 18:20 Acuity: KOBI 2 iw 18:30 Coronavirus screen:. ph 18:30 Method Of Arrival: EMS: [facility] ph 18:34 Risk Assessment: Do you want to hurt yourself or someone else? Unable to obtain. ph Historical: - Allergies: 18:32 NKDA; iw - PMHx: 18:32 Renal Disease; Seizures; iw - Immunization history:: Adult Immunizations unknown. - Social history:: Smoking status: unknown. - Unable to obtain history due to: altered mental status. Screenin:35 Abuse screen: Denies threats or abuse. Denies injuries from another. Nutritional ph screening: No deficits noted. Tuberculosis screening: No symptoms or risk factors identified. Fall Risk None identified. Assessment: 18:34 General: Appears in no apparent distress. Behavior is listless. Pain: Unable to use ph pain scale. Patient is disoriented. Neuro: Level of Consciousness is obtunded, Oriented to none pt sedated . Cardiovascular: Capillary refill < 3 seconds in bilateral fingers Patient's skin is warm and dry. Respiratory: Airway is patent Respiratory effort is even, unlabored. Derm: Skin is intact, Skin is diaphoretic, Skin is normal. Musculoskeletal: Circulation, motion, and sensation intact. Range of motion: intact in all extremities. 19:44 General: Behavior is combative, uncooperative, Took 5 nurses, ER doc and security to tw5 hold patient down to obtain urine sample. Patient observed screaming incoherently, attempting to bite, kick, and punch nursing staff. . Vital Signs: 18:30 BP 104 / 54; Pulse 132; Resp 18; Temp 96.8; Pulse Ox 97% on R/A; ph 19:30 BP 108 / 55; Pulse 108; Resp 20 S; Pulse Ox 97% on R/A; as6 20:30 BP 109 / 53; Pulse 105; Resp 17 S; Pulse Ox 97% on R/A; as6 21:28 BP 112 / 53; Pulse 96; Resp 16; Pulse Ox 100% on R/A; st1 ED Course: 18:22 Patient arrived in ED. em1 18:24 Jaziel Sharpe MD is Attending Physician. rn 18:30 Triage completed. iw 18:32 Maintain EMS IV. Gauge \T\ site: 18 RFA. iw 18:35 Patient has correct armband on for positive identification. Bed in low position. Side ph rails up X2. Pulse ox on. NIBP on. 18:35 Arm band placed on Patient placed in an exam room. ph 19:02 Kel Fenton, PANETRA is Primary Nurse. as6 19:03 CT Head Brain wo Cont In Process Unspecified. EDMS 19:21 Attending Physician role handed off by Jaziel Sharpe MD tal 19:21 Chris Gregg MD is Attending Physician. tal 19:48 Patient is placed in psych hold. tw5 21:50 Kenny Santana MD is Referral Physician. tal Restraints: 18:30 Violent/Self Destructive Restraint: Order: obtained. Initiated May 29, 2021 at 18:30 ph Staff present during the Initiation of Restraint: Sweta Thompson, RN, [facility]. Observed actions/behavior: destructive, confusion/disorientation, difficulty remembering or follow instructions, impaired decision making, decreased Level of Consciousness (LOC), unable to follow instructions, Restraint status: Side rails up x 4 Started. Soft wrist restraint (Right) Started. Soft wrist restraint (Left) Started. Soft ankle restraint (Right) Started. Soft ankle restraint (Left) Started. 18:45 Violent/Self Destructive Restraint: Observed actions/behavior: ph confusion/disorientation, difficulty remembering or follow instructions, impaired decision making, decreased Level of Consciousness (LOC), unable to follow instructions, Monitoring: Mental status: agitated/restless, Cognition: poor judgement, poor safety awareness, Impulsive, poor attention/concentration, unable to follow commands, Circulation: Within defined parameters (based on Cardiovascular assessment). Skin integrity: Within defined parameters (based on Integumentary assessment) No injuries due to Restraints noted. Readiness for Discontinue: Criteria not met. Patient still violent/self destructive and Alternative interventions still ineffective. Restraint continued. 19:00 Violent/Self Destructive Restraint: Observed actions/behavior: ph confusion/disorientation, difficulty remembering or follow instructions, impaired decision making, decreased Level of Consciousness (LOC), unable to follow instructions, Monitoring: Mental status: agitated/restless, Cognition: poor judgement, poor safety awareness, Impulsive, poor attention/concentration, unable to follow commands, Circulation: Within defined parameters (based on Cardiovascular assessment). Skin integrity: Within defined parameters (based on Integumentary assessment) No injuries due to Restraints noted. Restraint status: Side rails up x 4 Continued. Soft wrist restraint (Right) Continued. Soft wrist restraint (Left) Continued. Soft ankle restraint (Right) Continued. Soft ankle restraint (Left) Continued. Readiness for Discontinue: Criteria not met. Patient still violent/self destructive and Alternative interventions still ineffective. Restraint continued. Administered Medications: 18:27 Drug: Versed (midazolam) 2 mg Route: IVP; Site: right forearm; iw 19:45 Drug: NS 0.9% 1000 ml Route: IV; Rate: 1000 ml; Site: right forearm; st1 19:45 Drug: NS 0.9% 1000 ml Route: IV; Rate: 1000 ml; Site: right forearm; st1 20:08 Drug: Thiamine 100 mg Route: IV; Rate: bolus; Site: right forearm; as6 20:08 Drug: Banana Bag - (NS 0.9% 1000 ml, foLIC Acid 1 mg, Thiamine 100 mg, Multivitamin 1 as6 amp) Route: IV; Rate: 150 ml/hr; Site: right forearm; Outcome: 21:50 Discharge ordered by MD. parada 22:34 Patient left the ED. as6 Signatures: Dispatcher [employer] EDMS Chris Gregg MD MD cha Williams, Irene, RN RN iw Nieto, Roman, MD MD rn Martinez, Eric em1 Aydee Klein RN RN Yani Clayton tw5 Kel Fenton RN RN as6 Diann Drake RN RN st1 Corrections: (The following items were deleted from the chart) 19:50 19:44 General: Behavior is combative, uncooperative, tw5 tw5
[2021-05-29 23:32] VITALS: TEMP 96.8
[2021-05-29 23:35] VITALS: BP 112/53; O2SAT 100
--- NOTE | 2021-06-02 11:23 | EKG ---
Test Date: 2021-05-29 Test Time: 19:34:07 Residential Installer: MEASUREMENT RESULTS: Intervals: Rate: 109 CA: 134 QRSD: 84 QT: 328 QTc: 441 [place]: P: 65 CA: 134 QRS: 91 T: 60 INTERPRETIVE STATEMENTS: Sinus tachycardia Rightward axis Borderline ECG Compared to ECG 01/12/2021 09:44:16 Sinus rhythm no longer present Electronically Signed On 06-02-21 11:13:59 CDT by Herve Martinez
== END 2021-05-29 22:34 | disposition home or self-care (01) ==
LOC: ER 18:20
DX: F55.8 Abuse of other non-psychoactive substances (principal); T43.625A Adverse effect of amphetamines, initial encounter; N28.9 Disorder of kidney and ureter, unspecified
CPT/HCPCS: 36415; 70450; 80048; 80076; 80307; 80320; 80329; 81003; 85025; 85610; 85730; 93005; 96374; 96375; 99285; J2250; J3411; J7030

== ENCOUNTER 2021-05-30 00:12 | Emergency (ER) | payer SELFPAY ==
--- OUTSIDE RECORDS SUMMARY | 2021-05-30 01:31 | XMS REPORT | Continuity of Care Document ---
:1995 Author Organization [facility] t Address [address] [place] [address] Care Team Providers Name Role Phone UNKNOWN, [...] the National Kidney Foundation,http ://nkdep.nih.g ov Renal [id number] 07:55:00 Test Item Value Reference Range Interpretation [...] the National Kidney Foundation,http ://nkd ep.nih.gov RPR, [id number] 13:48:00 Test Item Value Reference Range Interpretation Comments RPR (test code = RPR) Non-Reactive Non-Reactive N Thyroid Stimulating Hormone (TSH)2016-10-13 08:11:00 Test Item Value Reference Range Interpretation Comments TSH (test code = TSH) 2.73 mIU/mL 0.270-4.200 N Lipid [id number] 08:04:00 Test Item Value Reference Range Interpretation Comments Cholesterol (test 182 mg/dL 0-200 N code = CHOL) Triglycerides (test 114 mg/dL 9-200 N code = TRIG) HDL (test code = 69 mg/dL 40-60 H HDL) Chol/HDL (test code 2.6 Ratio 0.0-5.0 N = CHOLPHDL) LDL, Calculated 90 0-130 N (NOTE)RISK O F HEART (test code = LDLC) DISEASEPu blished by [place] Heart AssociationAnal yte Optim al Boderline Increased RiskC HOL <200 200-239 >240TRI G <150 150-199 >200HDL Male: >60 <40HDL Female: >60 <50 LDL < 100 130-15 9 >160 LDL NEAR OPTIMAL IS 100- 129 VLDL (test code = 23 mg/dL 5-40 N VLDL) LDL/HDL (test code = 1 LDLPHDL)
--- NOTE | 2021-05-30 03:53 | EDPHYS ---
Physician Documentation [facility] Name: Moses Cochran Age: 25 yrs Sex: Male : 1995 Arrival Date: 05/30/2021 Time: 00:22 Bed 5 Private MD: ED Physician Chris Gregg HPI: 05/30 00:34 This 25 yrs old Male presents to ER via Unassigned with complaints of tal hallucinating, bugs out of penis, on meth. 00:34 The patient presents with trouble concentrating. Onset: The symptoms/episode tal began/occurred last night. Possible causes: drug use, amphetamines. Associated signs and symptoms: Pertinent positives: confusion. Current symptoms: In the emergency department the patient's symptoms are unchanged from the initial presentation. Patient's baseline: Neuro: alert but confused. It is unknown whether or not the patient has had similar symptoms in the past. Historical: - Allergies: 00:45 NKDA; as6 - PMHx: 00:45 Renal Disease; Seizures; Schizophrenia; as6 - Immunization history:: Adult Immunizations unknown. - Social history:: Patient uses street drugs, marijuana, Methamphetamine (Meth). - Family history:: not pertinent. ROS: 00:34 Constitutional: Negative for fever, chills, and weight loss, Eyes: Negative for injury, tal pain, redness, and discharge, ENT: Negative for injury, pain, and discharge, Neck: Negative for injury, pain, and swelling, Cardiovascular: Negative for chest pain, palpitations, and edema, Respiratory: Negative for shortness of breath, cough, wheezing, and pleuritic chest pain, Abdomen/GI: Negative for abdominal pain, nausea, vomiting, diarrhea, and constipation, Back: Negative for injury and pain, MS/Extremity: Negative for injury and deformity, Skin: Negative for injury, rash, and discoloration, Neuro: Negative for headache, weakness, numbness, tingling, and seizure, Allergy/Immunology: Negative for hives, rash, and allergies, Endocrine: Negative for neck swelling, polydipsia, polyuria, polyphagia, and marked weight changes, Hematologic/Lymphatic: Negative for swollen nodes, abnormal bleeding, and unusual bruising. 00:34 : Positive for bugs in urethera. Exam: 00:34 Constitutional: This is a well developed, well nourished patient who is awake, alert, tal and in no acute distress. Head/Face: Normocephalic, atraumatic. Eyes: Pupils equal round and reactive to light, extra-ocular motions intact. Lids and lashes normal. Conjunctiva and sclera are non-icteric and not injected. Cornea within normal limits. Periorbital areas with no swelling, redness, or edema. ENT: Nares patent. No nasal discharge, no septal abnormalities noted. Tympanic membranes are normal and external auditory canals are clear. Oropharynx with no redness, swelling, or masses, exudates, or evidence of obstruction, uvula midline. Mucous membranes moist. Neck: Trachea midline, no thyromegaly or masses palpated, and no cervical lymphadenopathy. Supple, full range of motion without nuchal rigidity, or vertebral point tenderness. No Meningismus. Chest/axilla: Normal chest wall appearance and motion. Nontender with no deformity. No lesions are appreciated. Cardiovascular: Regular rate and rhythm with a normal S1 and S2. No gallops, murmurs, or rubs. Normal PMI, no JVD. No pulse deficits. Respiratory: Lungs have equal breath sounds bilaterally, clear to auscultation and percussion. No rales, rhonchi or wheezes noted. No increased work of breathing, no retractions or nasal flaring. Abdomen/GI: Soft, non-tender, with normal bowel sounds. No distension or tympany. No guarding or rebound. No evidence of tenderness throughout. Back: No spinal tenderness. No costovertebral tenderness. Full range of motion. Male : Normal genitalia with no discharge or lesions. Skin: Warm, dry with normal turgor. Normal color with no rashes, no lesions, and no evidence of cellulitis. MS/ Extremity: Pulses equal, no cyanosis. Neurovascular intact. Full, normal range of motion. Neuro: Awake and alert, GCS 15, oriented to person, place, time, and situation. Cranial nerves II-XII grossly intact. Motor strength 5/5 in all extremities. Sensory grossly intact. Cerebellar exam normal. Normal gait. Psych: Awake, alert, with orientation to person, place and time. Behavior, mood, and affect are within normal limits. MDM: 00:32 Patient medically screened. tal 00:37 Differential Diagnosis: overdose. Data reviewed: vital signs, nurses notes. Data tal interpreted: monitoring and evaluation advisor: not applicable for this patient encounter. rate is 80 beats/min, rhythm is regular, Pulse oximetry: on room air is 95 %. Counseling: I had a detailed discussion with the patient and/or guardian regarding: the historical points, exam findings, and any diagnostic results supporting the discharge/admit diagnosis, the need for outpatient follow up, for definitive care, a family practitioner, a psychiatrist. Administered Medications: No medications were administered Disposition Summary: 05/30/21 00:38 Discharge Ordered Location: Home tal Problem: new tal Symptoms: have improved tal Condition: Stable tal Diagnosis - Adverse effect of amphetamines tal - Altered mental status, unspecified tal Followup: tal - With: Private Physician - When: Today - Reason: Recheck today's complaints, Continuance of care, Re-evaluation by your physician Discharge Instructions: - Discharge Summary Sheet tal - Amphetamines Use Disorder tal - Substance Use Disorder tal - Methamphetamines Use Disorder tal - Substance Use Disorder and Mental Illness tal Forms: - Medication Reconciliation Form tal - Thank You Letter tal - Antibiotic Education tal - Prescription Opioid Use tal Signatures: Chris Gregg MD MD cha Slawson, Ashby, RN RN as6
--- NOTE | 2021-05-30 03:53 | ER ---
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 pt was brought in with [employer] as well. pt is combative and a harm to others. unable to obtain vital signs due to pt being aggressive towards staff. 00:43 Coronavirus screen: At this time, the client does not indicate any symptoms associated as6 with coronavirus-19. Ebola Screen: No symptoms or risks identified at this time. 00:43 Method Of Arrival: EMS: [facility] as6 00:43 Acuity: KOBI 5 as6 Triage Assessment: 00:44 General: Appears in no apparent distress. Behavior is combative, restless, as6 uncooperative. Historical: - Allergies: 00:45 NKDA; as6 - PMHx: 00:45 Renal Disease; Seizures; Schizophrenia; as6 - Immunization history:: Adult Immunizations unknown. - Social history:: Patient uses street drugs, marijuana, Methamphetamine (Meth). - Family history:: not pertinent. Screenin:44 Abuse screen: Denies threats or abuse. Denies injuries from another. Nutritional as6 screening: No deficits noted. Tuberculosis screening: No symptoms or risk factors identified. Fall Risk None identified. Assessment: 00:37 General:. tw5 00:37 General: Behavior is combative, uncooperative, Patient unwilling to allow nursing staff tw5 to obtain vitals. Police at the bedside. Provider aware. . 00:45 Respiratory: Airway is patent Trachea midline Respiratory effort is even, unlabored, as6 Respiratory pattern is regular, symmetrical. ED Course: 00:22 Patient arrived in ED. kc5 00:23 Kel Fenton, PANTERA is Primary Nurse. as6 00:32 Chris Gregg MD is Attending Physician. atl 00:43 Triage completed. as6 Administered Medications: No medications were administered Outcome: 00:38 Discharge ordered by MD. parada 00:48 Discharged to Law Enforcement as6 00:48 Condition: stable 00:48 Patient left the ED. as6 Signatures: Chris Gregg MD MD cha Wood, Tiffany tw5 Kel Fenton RN RN as6 Jossy Whitman kc5
== END 2021-05-30 00:48 | disposition home or self-care (01) ==
LOC: ER 00:12
DX: R41.82 Altered mental status, unspecified (principal); T43.625A Adverse effect of amphetamines, initial encounter; F20.9 Schizophrenia, unspecified
CPT/HCPCS: 99284

== ENCOUNTER 2022-02-21 13:57 | Emergency (ER) | payer SELFPAY ==
--- OUTSIDE RECORDS SUMMARY | 2022-02-21 14:00 | XMS REPORT | Continuity of Care Document ---
:1995 Author Organization [facility] t Address [address] [place] [address] Care Team Providers Name Role Phone UNKNOWN, REFFERING Primary Care Physician Unavailable ARNOLD AIKEN Attending Clinician Unavailable Arnold Aiken NP Attending Clinician MAVERICK STONE Attending Clinician Unavailable Maverick Li Attending Clinician TANIA SANTO Attending Clinician Unavailable MAVERICK STONE Admitting Clinician Unavailable TANIA SANTO Admitting Clinician Unavailable Problems Condition Condition Condition Status Onset Resolution Last Treating Co mments Source Name Details Category Date Date Treatment Clinician Date Non-trauma Non-trauma Disease Active U nivers tic tic 8-14 ity of rhabdom[place] y[place] 00 Medical Branch Acute Acute Disease Active Overview: [facility] s renal renal 8-14 Formattin ity of failure failure 00:00: g of this [place] with with 00 note Medical tubular tubular might be Branch necrosis necrosis different from the original. Due to rhabdomyo lysis- non-oligu sarai Acute Acute Disease Active Overview: [place] s encephalop encephalop 8-14 Formattin ity of athy athy 00:00: g of this [place] 00 note Medical might be Branch different from the original. Likely due to toxicity from synthetic marijuana Seizures Seizures Disease Active Unive rs 8-11 ity of 00:00: [place] 00 Medical Branch Status Status Disease Active Univers epilepticu epilepticu 10-09 it y of s s 00:00: [place] Medical [facility] History of History of Disease Active Overview : Univers seizures seizures 10-09 Formattin ity of 00:00: g of this 00 note Medical might be Branch different from the original. Mostly due to substance abuse Substance Substance Disease Active Uni vers abuse abuse 10-09 ity of 00:00: [place] [facility] Allergies, Adverse Reactions, Alerts Allergy Allergy Status Severity Reaction(s) Onset Inactive Treating Comm ents Source Name Type Date Date Clinician NO KNOWN Drug Active Univers ALLERGIE Class ity of S [facility] Social History Social Habit Start Date Stop Date Quantity Comments Source Exposure to 2021-07-14 2021-07-24 Not sure [facility] SARS-CoV-2 (event) 00:00:00 11:15:00 Medica l Branch Sex Assigned At [birth year] [facility] y of [place] 00:00:00 00:00:00 Medical Branch Smoking Status Start Date Stop Date Source Current every day smoker 2015-10-10 00:00:00 Uni versity [facility] Medications Ordered Filled Start Stop Current Ordering Indication Dosage Frequency Signature Comments Components Source Medication Medication Date Date Medication? Clinician (SIG) Name Name No known No Univers medications 07-24 ity of 11:29: [place] 08 [facility] dicyclomine 2021- No 20mg 20 mg, Uni vers (BENTYL) 4-10 04-09 Oral, ity of tablet 20 00:00: 23:03 ONCE[place] dose, On Medical 06/07/21 Branch at 1900, Routine No known No Univers medications - ity of 17:56: [address] Vital Signs Vital Name Observation Time Observation Value Comments Source Systolic blood 2021-07-24 16:17:00 109 mm[Hg] Univer sity of pressure [facility] Diastolic blood 2021-07-24 16:17:00 80 mm[Hg] Unive rsity of pressure [facility] Heart rate 2021-07-24 16:17:00 85 /min Universi ty [facility] Body temperature 2021-07-24 16:17:00 37.67 [facility] Respiratory rate 2021-07-24 16:17:00 18 /min [facility] Body height 2021-07-24 16:17:00 160 cm [facility] Body weight 2021-07-24 16:17:00 65.772 kg [facility] BMI 2021-07-24 16:17:00 25.69 kg/m2 [facility] Oxygen saturation in 2021-07-24 16:17:00 100 /min [facility] Arterial blood by [facility] Pulse oximetry Branch Systolic blood 2021-06-08 00:57:00 118 mm[facility]Hg] [facility] Diastolic blood 2021-06-08 00:57:00 60 mm[Hg] [facility] Heart rate 2021-06-08 00:57:00 83 /min [facility] Respiratory rate 2021-06-08 00:57:00 16 /min [facility] Oxygen saturation in 2021-06-08 00:57:00 99 /min [facility] Arterial blood by [facility] Pulse oximetry Branch Body temperature 2021-06-07 22:41:00 37.44 [facility] Body weight 2021-06-07 22:41:00 64.864 kg [facility] Procedures Procedure Date / Time Performed Performing Clinician Sour e CONSENT/REFUSAL FOR 2021-07-24 16:05:37 Doctor Unassigned, No Un [facility] DIAGNOSIS AND Name Medical Branch TREATMENT CT ABDOMEN PELVIS WO 2021-06-07 23:55:00 Maverick Stone [facility] CONTRAST [facility] US GALL BLADDER 2021-06-07 23:50:08 Maverick Stone [facility] URINALYSIS 2021-06-07 23:09:00 Maverick Stone [place] [facility] [place] LIPASE 2021-06-07 23:03:00 Maverick Stone [facility] COMP. METABOLIC PANEL 2021-06-07 23:03:00 Maverick Stone [facility] ([id number]) [facility] CBC WITH DIFF 2021-06-07 23:03:00 Maverick Stone [place] [facility] Encounters Start End Encounter Admission Attending Care Care Encounter Source Date/Time Date/Time Type Type Clinicians Facility Department ID 2021-07-24 2021-07-24 Emergency [facility] [id number] Univers 11:35:00 11:37:00 ARNOLD boateng [facility] 2021-07-24 2021-07-[address] [facility] [id number] Univers 11:35:00 11:37:00 Arnold JAEGERAMANDA [id number] ity [facility] [id number] [facility] [id number] [address] 2021-06-07 2021-06-07 Emergency X [facility] [id number] Univers 17:42:00 20:00:00 MAVERICK boateng [facility] 2021-06-07 2021-06-[address] [facility] [id number] Univers 17:42:00 20:00:00 Maverick Casey ARORA [id number] i ty [facility] [id number] [facility] [id number] [address] Results Test Description Test Time Test Comments Results Result Comments Source COMP. METABOLIC PANEL (23108) 2021-06-07 23:35:34 Test Item Value Reference Range Interpretation Comme nts NA (test code = 1633010440) 140 mmol/L 135-145 K (test code = 7891593431) 4.1 mmol/L 3.5-5.0 CL (test code = 3771846986) 106 mmol/L 98-108 CO2 TOTAL (test code = 1805996534) 25 mmol/L 23-31 AGAP (test code = 7123474534) 2-16 BUN (test code = 5787497205) 14 mg/dL 7-23 GLUCOSE (test code = 1291082896) 123 mg/dL 70-110 H CREATININE (test code = 0.97 mg/dL 0.60-1.25 8908957704) TOTAL BILI (test code = 0.7 mg/dL 0.1-1.0 2462050239) CALCIUM (test code = 0609538752) 8.9 mg/dL 8.6-10.6 T PROTEIN (test code = 1798545968) 7.1 g/dL 6.3-8.2 ALBUMIN (test code = 8101756001) 4.4 g/dL 3.5-5.0 ALK PHOS (test code = 9679899984) 82 U/L 34-122 ALTv (test code = 1742-6) 121 U/L 5-50 H AST(SGOT) (test code = 4446896254) 61 U/L 13-40 H eGFR (test code = 4292067937) mL/min/1.73m2 SHARAN (test code = SHARAN) Association of Glomerular Filtration Rate (GFR) and Staging of Kidney Disease* + +-------- + ------+| GFR (mL/min/1.73 m2) ?| With Kidney Damage ?| ?Without Kidney Damage+ +-- + +| ?>90 ?| ?Stage one ?| ? Normal ?+ +------- + -------+| ?60-89 ?| ?Stage two ?| ? Decreased GFR ? + +-------- + ------+| ?30-59 ?| ?Stage three ?| ? Stage three ? + +-------- + ------+| ?15-29 ?| ?Stage four ? | ? Stage four ?+ +------- + -------+| ?<15 (or dialysis) ? ?| ?Stage five ? | ? Stage five ?+ +------- + -------+ *Each stage assumes the associated GFR level has been in effect for at least three months. ?Stages 1 to 5, with or without kidney disease, indicate chronic kidney disease. Notes: Determination of stages one and two (with eGFR >59mL/min/1.73 m2) requires estimation of kidney damage for at least three months as defined by structural or functional abnormalities of the kidney, manifested by either:Pathological abnormalities or Markers of kidney damage (including abnormalities in the composition of the blood or urine or abnormalities in imaging tests). Lab Interpretation (test code = Abnormal 38923-8) [facility]35[facility]34 Test Item Value Reference Range Interpretation Comments LIPASE (test code = 3796100759) 92 U/L 0-220 Lab Interpretation (test code = Normal 80739-9) [facility] WITH [id number] 23:21:58 Test Item Value Reference Range Interpretation Comments WBC (test code = See_Comment [Automated 6690-2) message] The sy stem which generated this result transmitted reference range : 4.20 - 10.70 10*3/?L. The reference range was not used to interpret this result as normal/abnormal . RBC (test code = See_Comment [Automated 789-8) message] The sy stem which generated this result transmitted reference range : 4.26 - 5.52 10*6/?L. The reference range was not used to interpret this result as normal/abnormal . HGB (test code = 14.8 g/dL 12.2-16.4 718-7) HCT (test code = 41.0 % 38.4-49.3 4544-3) MCV (test code = 86.7 fL 81.7-95.6 787-2) MCH (test code = 31.3 pg 26.1-32.7 785-6) MCHC (test code = 36.1 g/dL 31.2-35.0 H 786-4) RDW-SD (test code = 39.5 fL 38.5-51.6 74005-0) RDW-CV (test code = 12.3 % 12.1-15.4 788-0) PLT (test code = See_Comment [Automated 777-3) message] The sy stem which generated this result transmitted reference range : 150 - 328 10*3/ ?L. The reference r james was not used to interpret this result as normal/abnormal . MPV (test code = 10.4 fL 9.8-13.0 59855-8) NRBC/100 WBC (test See_Comment [Automat ed code = 4419369473) message] The system which generated this result transmitted reference range : 0.0 - 10.0 /100 WBCs. The refer ence range was not u sed to interpret th is result as normal/abnormal . NRBC x10^3 (test code <0.01 See_Comment [Auto mated = 0153650534) message] The s ystem which generated this result transmitted reference range : 10*3/?L. The reference range was not used to interpret this result as normal/abnormal . GRAN MAT (NEUT) % 54.5 % (test code = 770-8) IMM GRAN % (test code 0.30 % = 2665963638) LYMPH % (test code = 29.0 % 736-9) MONO % (test code = 10.6 % 5905-5) EOS % (test code = 5.0 % 713-8) BASO % (test code = 0.6 % 706-2) GRAN MAT x10^3(ANC) 3.46 10*3/uL 1.99-6.95 (test code = 2883340419) IMM GRAN x10^3 (test <0.03 0.00-0.06 code = 7212335960) LYMPH x10^3 (test code 1.84 10*3/uL 1.09-3.23 = 731-0) MONO x10^3 (test code 0.67 10*3/uL 0.36-1.02 = 742-7) EOS x10^3 (test code = 0.32 10*3/uL 0.06-0.53 711-2) BASO x10^3 (test code 0.04 10*3/uL 0.01-0.09 = 704-7) Lab Interpretation Abnormal (test code = 02318-2) [facility] [id number] 07:58:00 Test Item Value Reference Range Interpretation Comments Sodium (test code = 140 mmol/L 135-145 N NA) Potassium (test 4.5 mmol/L 3.5-5.1 N code = K) Chloride (test code 102 mmol/L 98-105 N = CL) Carbon Dioxide 29 mmol/L 22-29 N (test code = CO2) Glucose (test code 86 mg/dL 70-115 N = GLU) Blood Urea Nitrogen 21 mg/dL 6-20 H (test code = BUN) Creatinine (test 1.2 mg/dL 0.7-1.2 N code = CREAT) Calcium (test code 9.8 mg/dL 8.3-10.5 N = CA) Prot Total (test 6.9 g/dL 6.4-8.3 N code = TP) Albumin (test code 4.5 g/dL 3.5-5.2 N = ALB) A/G Ratio (test 1.9 Ratio code = AGRATIO) Globulin (test code 2.4 2.9-3.1 L = GLOB) Bili Total (test 0.9 mg/dL 0.1-0.9 N code = TBIL) Alk Phos (test code 64 U/L 40-129 N = APHOS) AST (test code = 18 U/L 1-40 N AST) ALT (test code = 17 U/L 1-41 N ALT) BUN/Creatinine 17.5 Ratio (test code = BCRATIO) Anion Gap (test 9 mmol/L 7-16 N code = AGAP) Estimated [...] by the National Kidney Foundation,http ://nkd ep.nih.gov Renal [id number] 07:55:00 Test Item Value Reference Range Interpretation [...] the National Kidney Foundation,http ://nkd ep.nih.gov RPR, [id number] 13:48:00 Test Item Value Reference Range Interpretation Comments RPR (test code = RPR) Non-Reactive Non-Reactive N Thyroid Stimulating Hormone (TSH)2016-10-13 08:11:00 Test Item Value Reference Range Interpretation Comments TSH (test code = TSH) 2.73 mIU/mL 0.270-4.200 N Lipid [id number] 08:04:00 Test Item Value Reference Range Interpretation Comments Cholesterol (test 182 mg/dL 0-200 N code = CHOL) Triglycerides (test 114 mg/dL 9-200 N code = TRIG) HDL (test code = 69 mg/dL 40-60 H HDL) Chol/HDL (test code 2.6 Ratio 0.0-5.0 N = CHOLPHDL) LDL, Calculated 90 0-130 N (NOTE)RISK O F HEART (test code = LDLC) DISEASEPu blished by [place] Heart AssociationAnal yte Optimal Boderli ne Increased RiskC HOL <200 200-239 >240TRI G <150 150-199 >200HDL Male: >60 <40HDL Fema le: >60 <50LDL <100 13 0-159 >160LDL NEAR OP [facility] 100-129 VLDL (test code = 23 mg/dL 5-40 N VLDL) LDL/HDL (test code = 1 LDLPHDL)"
--- NOTE | 2022-02-21 15:12 | EDPHYS ---
Physician Documentation [facility] Name: Moses Cochran Age: 26 yrs Sex: Male : 1995 Arrival Date: 02/21/2022 Time: 14:01 Bed External Waiting Private MD: ED Physician Yolanda Banks HPI: 02/21 14:30 This 26 yrs old Male presents to ER via Unassigned with complaints of cp Dizziness, Headache. 14:30 The patient has shortness of breath at rest. cp 14:30 Onset: The symptoms/episode began/occurred this morning. Duration: The symptoms are cp continuous, and are steadily getting worse. The patient presents with dizziness, lightheadedness. Onset: The symptoms/episode began/occurred today. Associated signs and symptoms: Pertinent positives: headache. ROS: 14:33 Constitutional: Negative for body aches, chills, fever, poor PO intake. cp 14:33 Eyes: Negative for injury, pain, redness, and discharge. cp 14:33 ENT: Negative for drainage from ear(s), ear pain, sore throat, difficulty swallowing, difficulty handling secretions. 14:33 Cardiovascular: Negative for chest pain, edema, palpitations. 14:33 Respiratory: Positive for shortness of breath, Negative for cough, wheezing. 14:33 Abdomen/GI: Negative for abdominal pain, vomiting, diarrhea, constipation. 14:33 Skin: Negative for rash. 14:33 Neuro: Positive for dizziness, headache, Negative for altered mental status, seizure activity, syncope, weakness. 14:33 All other systems are negative. Exam: 14:37 Constitutional: The patient appears in no acute distress, alert, awake, cp non-diaphoretic, non-toxic, well developed, well nourished, anxious. 14:37 Head/Face: Normocephalic, atraumatic. cp 14:37 Eyes: Periorbital structures: appear normal, Conjunctiva: normal, no exudate, no injection, Sclera: no appreciated abnormality, Lids and lashes: appear normal, bilaterally. 14:37 ENT: External ear(s): are unremarkable, Nose: is normal, Mouth: Lips: moist, Oral mucosa: moist, Posterior pharynx: Airway: no evidence of obstruction, patent. 14:37 Chest/axilla: Inspection: normal, Palpation: is normal, no crepitus, no tenderness. 14:37 Cardiovascular: Rhythm: regular, Edema: is not appreciated, JVD: is not appreciated. 14:37 Respiratory: the patient does not display signs of respiratory distress, Respirations: normal, no use of accessory muscles, no retractions, labored breathing, is not present, Breath sounds: are clear throughout, no decreased breath sounds, no stridor, no wheezing. 14:37 Abdomen/GI: Inspection: abdomen appears normal, Palpation: abdomen is soft and non-tender, in all quadrants. 14:37 Neuro: Orientation: to person, place \T\ time. Mentation: is normal, Cerebellar function: is grossly normal, Motor: moves all fours, strength is normal, Sensation: is normal. MDM: 14:30 Differential diagnosis: Anxiety Reaction Myocardial Infarction Pneumothorax illegal cp drug use, cardiac arrythmia, electrolyte abnormality. 15:16 Patient medically screened. 15:16 Data reviewed: and as a result, I will discharge patient. 15:16 ED course: Patient may return at any time for reevaluation. 02/21 14:23 Order name: EKG; Complete Time: 14:24 02/21 14:23 Order name: Cardiac monitoring 02/21 14:23 Order name: EKG - Nurse/Tech 02/21 14:23 Order name: IV Saline Lock 02/21 14:23 Order name: Labs collected and sent 02/21 14:23 Order name: O2 Per Protocol 02/21 14:23 Order name: O2 Sat Monitoring cp Administered Medications: No medications were administered Disposition: 18:55 STAFF ATTESTATION STATEMENT: I was immediately available onsite in the emergency sd2 department for consultation in the care of this patient. I did not see or examine this patient. Yolanda Banks MD. Disposition Summary: 02/21/22 15:16 Discharge Ordered Location: Home cp Problem: new cp Symptoms: are unchanged cp Condition: Stable cp Diagnosis - Shortness of breath cp - Headache cp - Dizziness and giddiness cp Followup: cp - With: Emergency Department - When: As needed - Reason: Worsening of condition Discharge Instructions: - Discharge Summary Sheet cp - Dizziness cp - General Headache Without Cause cp - Shortness of Breath, Adult cp Forms: - Medication Reconciliation Form cp - Thank You Letter cp - Antibiotic Education cp - Prescription Opioid Use cp Signatures: Dispatcher [employer] EDMS Aydee Klein RN RN ph Madhuri, Chris, PA PA Yolanda Dan MD MD sd2 Corrections: (The following items were deleted from the chart) 15:13 15:12 post triage evaluation and consult ph cp 15:13 15:12 unknown ph cp 15:18 14:24 Chest Single View+RAD.RAD.BRZ ordered. EDMS EDMS
--- NOTE | 2022-02-21 15:12 | ER ---
Nurse's Notes [facility] Name: Moses Cochran Age: 26 yrs Sex: Male : 1995 Arrival Date: 02/21/2022 Time: 14:01 Bed External Waiting Private MD: Diagnosis: Shortness of breath;Headache;Dizziness and giddiness ED Course: 02/21 14:01 Patient arrived in ED. mr 14:03 Chris Dhaliwal PA is PHCP. cp 14:03 Yolanda Banks MD is Attending Physician. cp Administered Medications: No medications were administered Outcome: 15:12 Patient left the ED. ph 15:16 Discharge ordered by MD. cp 16:01 Patient left the ED. iw Signatures: Elisa Adams Irene RN RN Aydee Klein RN RN Chris Dhaliwal PA PA cp
== END 2022-02-21 16:01 | disposition home or self-care (01) ==
LOC: ER 13:57
DX: R51.9 Headache, unspecified (principal); R06.02 Shortness of breath; R42 Dizziness and giddiness